=== PATIENT | female | born 1980 | race Caucasian/White ===

== ENCOUNTER 2019-08-19 16:09 | Emergency (ER) | payer OTHER ==
[~2019-08-19] VITALS: Ht 170.2 cm; Wt 76.4 kg
[2019-08-19] MEDS ORDERED: ACETAMINOPHEN 500 MG TAB PO ONE (16:45)
[2019-08-19] MEDS ORDERED: IBUPROFEN 400 MG TAB PO ONE (17:45)
[2019-08-19 17:50] VITALS: BP 139/83
--- NOTE | 2019-08-19 19:19 | REP ---
CT BRAIN WITHOUT CONTRAST: CT brain was performed without IV contrast. The ventricles are normal in size and position. There is no midline shift or mass effect. Lepe-white differentiation is well maintained. There is no acute intracranial hemorrhage or extra-axial fluid collection. Bone window examination is unremarkable. IMPRESSION: Negative noncontrast CT brain. Preliminary report provided by [facility] at the time of the exam. Electronically Signed by Yaniv Lepe MD 08/20/2019 12:44 P
--- NOTE | 2019-08-19 19:20 | REP ---
CT CERVICAL SPINE: CT cervical spine performed in the axial plane. Sagittal and coronal reconstruction images are performed. There is no fracture or dislocation. Vertebral bodies are normal in height and are well aligned with normal cervical lordosis. There is no prevertebral soft tissue swelling. Disc spaces are well preserved. Spinal canal appears adequate. There is mild mucosal thickening in the left maxillary sinus. Tiny spurs are noted of C5 through C7. There is diffuse narrowing, sclerosis and spurring at the posterior facet joints. IMPRESSION: Mild degenerative changes without fracture or dislocation. Preliminary report provided by [facility] at the time of the exam. Electronically Signed by Yaniv Lepe MD 08/20/2019 12:44 P
== END 2019-08-19 18:32 | disposition home or self-care (01) ==
LOC: M ED 16:09 → EDBD 16:09 → M ED 18:32
DX: S16.1XXA Strain of muscle, fascia and tendon at neck level, initial encounter (principal); V43.52XA Car driver injured in collision with other type car in traffic accident, initial encounter; Y92.410 Unspecified street and highway as the place of occurrence of the external cause

== ENCOUNTER → 2021-03-05 | Outpatient (REF) | payer OTHER | LOC: M SFHCADAM 16:40 | PROVIDERS: ATTEND Family Medicine | DX: R05 Cough (principal) ==

== ENCOUNTER 2021-04-19 12:38 | Emergency (ER) | payer OTHER ==
[~2021-04-19] VITALS: Ht 170.2 cm; Wt 82.9 kg
[2021-04-19] MEDS ORDERED: ALBUTEROL 90 MCG/ACT 8GM HFA INHALER INH ONE (13:40)
[2021-04-19 14:47] VITALS: O2SAT 100
[2021-04-19 14:47] LABS: BASO # 0.1 10^3/uL (0.0-0.2); BASO % 0.5 % (0.0-1.0); EOS # 0.2 10^3/uL (0.0-0.5); EOS % 2.3 % (0.0-3.0); HEMATOCRIT 41.7 % (36.0-47.0); HEMOGLOBIN 13.9 g/dl (12.0-15.5); LYMPH # 1.7 10^3/uL (1.5-5.0); LYMPH % 18.6 % (24.0-44.0); MEAN CORPUSCULAR HEMOGLOBIN 30.8 pg (27.0-33.0); MEAN CORPUSCULAR HGB CONC 33.3 g/dl (32.0-36.5); MEAN CORPUSCULAR VOLUME 92.3 fl (80.0-96.0); MONO # 0.6 10^3/uL (0.0-0.8); MONO % 6.6 % (2.0-8.0); NEUTROPHILS # 6.6 10^3/uL (1.5-8.5); NEUTROPHILS % 71.7 % (36.0-66.0); PLATELET COUNT, AUTOMATED 321 10^3/uL (150-450); RED BLOOD COUNT 4.52 10^6/uL (4.00-5.40); WHITE BLOOD COUNT 9.2 10^3/uL (4.0-10.0)
[2021-04-19 15:05] LABS: HCG, SERUM QUALITATIVE NEGATIVE (NEGATIVE)
[2021-04-19 15:12] LABS: ALBUMIN 3.2 GM/DL (3.2-5.2); ALT/SGPT 18 U/L (12-78); BILIRUBIN,TOTAL 0.3 MG/DL (0.2-1.0); BLOOD UREA NITROGEN 14 MG/DL (7-18); C REACTIVE PROTEIN QUANTITATIV 1.33 MG/DL (0.00-0.30); CALCIUM LEVEL 8.8 MG/DL (8.5-10.1); CARBON DIOXIDE LEVEL 26 MEQ/L (21-32); CHLORIDE LEVEL 106 MEQ/L (98-107); CK-MB VALUE MASS 1.5 NG/ML (<3.6); CPK CREATINE PHOSPHOKINASE 81 U/L (26-192); CREATININE FOR GFR 0.95 MG/DL (0.55-1.30); GLOMERULAR FILTRATION RATE > 60.0 (>58); GLUCOSE, FASTING 83 MG/DL (70-100); LDH LACTATE DEHYDROGENASE 177 U/L (84-246); MB/CK RELATIVE INDEX 1.85 (< OR =4); POTASSIUM SERUM 4.4 MEQ/L (3.5-5.1); SODIUM LEVEL 137 MEQ/L (136-145); TOTAL PROTEIN 7.1 GM/DL (6.4-8.2); TROPONIN I < 0.02 NG/ML (< 0.10)
--- NOTE | 2021-04-19 15:33 | REP ---
INDICATION: Coronavirus workup. COMPARISON: Comparison chest x-ray October 01, 2013. TECHNIQUE: Portable upright AP chest radiograph. FINDINGS: The lungs are exposed at a slightly lesser volume but this is symmetric and the lung noe are clear. Pleural angles are sharp. Heart is not enlarged. Pulmonary vasculature is not increased. No acute bony abnormality. IMPRESSION: No active disease. <Electronically signed by Robert Amaro > 04/19/21 [id number]
[2021-04-19 15:45] LABS: RSV AMPLIFICATION POSITIVE (NEGATIVE)
[2021-04-19] MEDS ORDERED: MEDR4PAK PO (15:56)
[2021-04-19 16:15] VITALS: BP 152/82
--- NOTE | 2021-04-19 21:43 | ECGEPIP ---
[facility] - ED Test Date: 2021-04-19 Pat Name: FARHEEN COOLEY Department: Room: - Gender: Female Phlebotomy Specialist: BOBBY : 1980 Requested By: BERTHA Gaston PA-C Order Number: [id number] Reading MD: Francine Olivares Measurements Intervals [place] Rate: 81 P: 42 DC: 132 QRS: 51 QRSD: 80 T: 23 QT: 374 QTc: 434 Interpretive Statements Normal sinus rhythm No prior Electronically Signed on 04-19-2021 21:42:58 EDT by Francine Olivares
== END 2021-04-19 16:16 | disposition home or self-care (01) ==
LOC: M ED 12:38
DX: J06.9 Acute upper respiratory infection, unspecified (principal); B97.4 Respiratory syncytial virus as the cause of diseases classified elsewhere; Z20.822 Contact with and (suspected) exposure to COVID-19; J45.909 Unspecified asthma, uncomplicated

== ENCOUNTER 2023-05-15 09:07 | Emergency (ER) | payer OTHER, SELFPAY ==
[~2023-05-15] VITALS: Ht 170.2 cm; Wt 86.4 kg
[~2023-05-15 09:07] MED LIST: ALBU8.5H; AMOX875T2 PO; ESTA0.25; MEDR4PAK PO; MOME50SP2 NARES
[2023-05-15 10:34] VITALS: BP 131/77; TEMP 98.3; O2SAT 98
== END 2023-05-15 10:39 | disposition home or self-care (01) ==
LOC: M ED 09:07
DX: M25.562 Pain in left knee (principal)

== ENCOUNTER → 2023-07-29 | Outpatient (CLI) | payer SELFPAY | LOC: M SOG 08:34 | PROVIDERS: ATTEND Physician Assistant | DX: M25.561 Pain in right knee (principal) ==

== ENCOUNTER 2024-10-08 10:36 | Emergency (ER) | payer OTHER, SELFPAY ==
[~2024-10-08] VITALS: Ht 170.2 cm; Wt 83.6 kg
[2024-10-08] MEDS: ACETAMINOPHEN 500 MG TAB PO ONE (11:33)
[2024-10-08] MEDS ORDERED: OSEL75CA PO (13:12)
[2024-10-08 13:22] VITALS: BP 119/63; TEMP 98.3; O2SAT 95
== END 2024-10-08 13:33 | disposition home or self-care (01) ==
LOC: M ED 10:36
DX: J09.X2 Influenza due to identified novel influenza A virus with other respiratory manifestations (principal); B34.2 Coronavirus infection, unspecified

== ENCOUNTER → 2025-07-10 | Outpatient (REF) | payer OTHER ==
[~2025-07-10] MED LIST changes: +OSEL75CA PO
== END ==
LOC: M LAB REF 18:32
DX: J02.9 Acute pharyngitis, unspecified (principal)